=== PATIENT | male | born 2005 | race Caucasian/White ===

== ENCOUNTER 2024-01-08 20:15 | Emergency (ER) | payer BC ==
[2024-01-08 20:41] LABS: BASOPHILS PERCENT AUTO 0.1 % (0.0-1.0); EOSINOPHILS PERCENT AUTO 0.3 % (1.0-3.0); HEMATOCRIT 43.2 % (40.0-54.0); HEMOGLOBIN 14.7 g/dL (14.0-18.0); LYMPHOCYTES PERCENT AUTO 12.2 % (20.5-50.1); MEAN CORPUSCULAR HEMOGLOBIN 28.3 pg (27.0-34.0); MEAN CORPUSCULAR VOLUME 83.1 fL (80-100); MONOCYTES PERCENT AUTO 6.6 % (2-8); NEUTROPHILS PERCENT AUTO 80.8 % (42.2-75.2); PLATELET COUNT,PLT 218 10^3/uL (150-450); WHITE BLOOD CELL COUNT,WBC 13.7 10^3/uL (5.0-10.0)
[2024-01-08] MEDS: Bacitracin Oint 1 GM U/D Packet TOP ONE (20:52)
[2024-01-08 21:05] LABS: A/G RATIO 1.2; ALBUMIN 3.8 g/dL (3.4-5.0); ANION GAP 11.6 mEq/L (7-13); BILIRUBIN TOTAL 1.2 mg/dL (0.2-1.0); BUN/CREATININE RATIO 15.2 (No establ ref range); CALCIUM 8.8 mg/dL (8.5-10.1); CREATININE 0.99 mg/dL (0.70-1.30); EST CRCL DRUG DOSING (CG) 110.88 mL/min; POTASSIUM,K 3.6 mmol/L (3.5-5.1)
[2024-01-08] MEDS: Lactated Ringers 1,000 ML IV SCH (21:09)
[2024-01-08] MEDS: Morphine 2 MG/ML SYRINGE IVPUSH ONE (22:26)
[2024-01-08] MEDS: Ondansetron 4 MG/2 ML SDV IVPUSH ONE (22:47)
== END 2024-01-08 23:40 ==
LOC: DL.ED 20:15
DX: T21.21XA Burn of second degree of chest wall, initial encounter (principal); T21.22XA Burn of second degree of abdominal wall, initial encounter; T23.272A Burn of second degree of left wrist, initial encounter; T24.211A Burn of second degree of right thigh, initial encounter; X04.XXXA Exposure to ignition of highly flammable material, initial encounter; Z79.899 Other long term (current) drug therapy
CPT/HCPCS: 36415; 51702; 80053; 85025; 96374; 96375; 99283; J2270; J2405; J7120